=== PATIENT | male | born 2000 | race Caucasian/White ===

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

== ENCOUNTER 2018-07-01 19:13 | Emergency (ER) | payer OTHER ==
[2018-07-01 19:49] VITALS: BP 129/94
--- NOTE | 2018-07-01 20:14 | ED ---
Head Injury - HPI Summary HPI Summary: 7 months ago patient had a head injury , since that time has had persistent headaches, without nausea. yesterday he fell again and hit the back of his head. - History Of Current Complaint Chief Complaint: UCHeadache Stated Complaint: HEAD PAIN Time Seen by Provider: 07/01/18 19:53 Hx Obtained From: Patient Mechanism Of Injury: Blunt Trauma, Direct Blow Onset of Pain: Post Accident Severity Currently: Mild Pain Intensity: 6 Location of Head Injury: Temporal Character: Dull, Aching Aggravating Factor(s): Movement Alleviating Factor(s): Rest - Risk Factors SDH Risk Factor: Male, Recent Trauma - Allergies/Home Medications Allergies/Adverse Reactions: Allergies Allergy/AdvReac Type Severity Reaction Status Date / Time peanut Allergy Unknown Verified 07/01/18 19:50 Reaction Details soy Allergy Unknown Verified 07/01/18 19:50 Reaction Details Home Medications: Home Medications NK [No Home Medications Reported] 07/01/18 [History Confirmed 07/01/18] PMH/Surg Hx/FS Hx/Imm Hx Previously Healthy: Yes Endocrine/Hematology History: Denies: Hx Anticoagulant Therapy Respiratory History: Denies: Hx Asthma Infectious Disease History: No Infectious Disease History: Denies: Traveled Outside the [place] in Last 30 Days - Family History Known Family History: Negative: Seizure Disorder - Social History Alcohol Use: Rare Substance Use Type: Reports: Marijuana Substance Use Comment - Amount & Last Used: occasional Smoking Status (MU): Never Smoked Tobacco Review of Systems Constitutional: Negative Eyes: Negative ENT: Negative Cardiovascular: Negative Respiratory: Negative Gastrointestinal: Negative Genitourinary: Negative Musculoskeletal: Negative Skin: Negative Neurological: Negative All Other Systems Reviewed And Are Negative: Yes Physical Exam Triage Information Reviewed: Yes Vital Signs On Initial Exam: Initial Vitals Temp Pulse Resp BP Pulse Ox 36.8 C 74 16 129/94 100 07/01/18 19:43 07/01/18 19:43 07/01/18 19:43 07/01/18 19:43 07/01/18 19:43 Vital Signs Reviewed: Yes Appearance: Positive: Well-Appearing, No Pain Distress Skin: Positive: Warm, Dry Head/Face: Positive: Normal Head/Face Inspection Eyes: Positive: Normal, EOMI, DAVID ENT: Positive: Normal ENT inspection Neck: Positive: Supple Respiratory/Lung Sounds: Positive: Clear to Auscultation Cardiovascular: Positive: Normal Neurological: Positive: Normal, Sensory/Motor Intact, Alert, Oriented to Person Place, Time, CN Intact II-III, Reflexes Intact, Normal Gait Diagnostics - Vital Signs Vital Signs Temp Pulse Resp BP Pulse Ox 07/01/18 19:43 36.8 C 74 16 129/94 100 - Laboratory Lab Statement: Any lab studies that have been ordered have been reviewed, and results considered in the medical decision making process. Head Injury Course/Dx - Diagnoses Provider Diagnoses: Headache, post-traumatic Discharge - Sign-Out/Discharge Documenting (check all that apply): Patient Departure All imaging exams completed and their final reports reviewed: Yes - Discharge Plan Condition: Good Disposition: HOME Patient Education Materials: Chronic Post Traumatic Headache (ED) Referrals: No Primary Care Phys,[facility] [Primary Care Provider] - - Billing Disposition and Condition Condition: GOOD Disposition: Home
--- NOTE | 2018-07-01 20:38 | RAD ---
EXAM: CT Head Without Intravenous Contrast EXAM DATE/TIME: 07/01/2018 8:24 PM CLINICAL HISTORY: 17 years old, male; Pain; Additional info: Head injury 7 months ago, diagnosed with concussion, chronic headaches since, head injury last night w/o loc. Some disorientation and photosensitivity TECHNIQUE: Axial computed tomography images of the head/brain without intravenous contrast. All CT scans at this facility use at least one of these dose optimization techniques: automated exposure control; mA and/or kV adjustment per patient size (includes targeted exams where dose is matched to clinical indication); or iterative reconstruction. COMPARISON: No relevant prior studies available. FINDINGS: Brain: No acute ischemic changes, extra axial fluid collections, intraparenchymal hemorrhage, or midline shift. Ventricles: Normal. No ventriculomegaly. Bones/joints: Normal. No acute fracture. Sinuses: Normal as visualized. No acute sinusitis. Mastoid air cells: Normal as visualized. No mastoid effusion. Soft tissues: Normal. IMPRESSION: No traumatic intracranial abnormalities. To contact [facility] with a general question: [facility] - [phone] For direct physician to physician contact: Physician Hotline - [phone] [facility] (ad Facility ID #[id number])
== END 2018-07-01 20:41 | disposition home or self-care (01) ==
LOC: UCEAST 19:13
DX: S09.90XA Unspecified injury of head, initial encounter (principal); R51 Headache; W19.XXXA Unspecified fall, initial encounter; Y92.9 Unspecified place or not applicable
CPT/HCPCS: 70450; 99211; G0463

== ENCOUNTER 2019-11-15 20:43 | Inpatient (IN) | payer OTHER ==
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
[2019-11-15 22:14] LABS: Urine Benzodiazepine Screen None Detected (None Detect); Urine Opiates Screen None Detected (None Detect)
[2019-11-16] MEDS ORDERED: diPHENhydraMINE PO* 25 MG ONE (02:23)
[2019-11-16] MEDS ORDERED: Acetaminophen TAB* 325 MG PO PRN (02:46)
[2019-11-16] MEDS ORDERED: diphenhydrAMINE PO* 25 MG Q6H PRN AGITATION or INSOMNIA PO (02:46)
[2019-11-16] MEDS ORDERED: Al Hydrox/Mg Hydrox/Simet LIQ* 30 ML UDC PO PRN (02:46)
[2019-11-16] MEDS: Vitamin THERAPEUTIC TAB PO SCH (09:40)
[2019-11-16] MEDS ORDERED: Albuterol HFA INHALER* 8 gm MDI INH PRN (14:00)
[2019-11-16] MEDS: Pantoprazole TAB * 40 MG TAB PO SCH (15:44)
--- NOTE | 2019-11-16 16:04 | HP ---
HISTORY AND PHYSICAL: DATE OF ADMISSION: 11/16/19 SUPERVISING PSYCHIATRIST: Dr. Vikash Calloway.* (DICTATED BY JAMA NARANJO NP) JUSTIFICATION FOR ADMISSION: The patient presented to the emergency department with complaints of depression, anxiety, and thoughts of suiciding via hanging. The patient merits hospitalization for immediate safety and stabilization. CHIEF COMPLAINT: "I'm depressed at school." HISTORY OF PRESENT ILLNESS: César is a 19-year-old white male, domiciled, student at [employer], who presents to the emergency department under 9.45 due to making threats of suicide with a plan to hang himself this weekend. According to information obtained in the emergency room, his classmate reported that he has been stalking her and the behaviors are increasing. He made suicidal statements to her last evening after talking about ways in which he has made her uncomfortable. The patient reported a previous suicide attempt via hanging to her. During the evaluation process, he admitted to stating that he was going to hang himself and having suicidal thoughts earlier in the day. While being admitted to the [facility], the patient's father was present as he had driven here from their hometown of [place], [place]. He and the patient immediately submitted a written request for a court hearing and did not agree with the patient being admitted. Today, I spoke with the patient's father, Leif Cardenas, prior to meeting with César. Leif reported that he felt that the admission was an overreaction. He goes into detail describing the relationship that César has had with above classmate for the past year or so. He states that they dated briefly, then broke up in August 2018 just prior to finals. The patient felt ostracized by peers in the context of the relationship/friendship with Tonia. He took a medical leave at the end of spring 2018 for depression and a left knee injury. He returned to [employer] in 2019. Leif describes the relationship with Tonia to be manipulative and toxic. He states that she has been dating a student recruiter and described the inappropriate relationship to César. César then made fake social media accounts apparently under the guys to help Tonia and identify more information about the inappropriateness of the relationship. Leif states that he is considering helping César take a leave of absence. He advocates for his discharge as soon as possible to come back home and continue therapy with a private therapist he has been seeing for the past 7 years. The patient's father appreciative of information in regards to admission and discharge processes and reported desire to continue being a part of treatment planning. Upon approach, César is working on a puzzle in the milieu. He is pleasant, cooperative, and easy to establish rapport with. He states that he often goes into a meditative state after having anxiety attacks and that this happened yesterday last evening. This helped him go to sleep. He reports he has been regretful in regards to behaviors in the context of relationship with Tonia. He states he has been realizing slowly that they are toxic for each other. He identifies that she is the direct cause of anxiety for him. He reports that he made these fake Facebook and delicious accounts and then it became more intense than he intended it to be. He reports that he had thoughts of suicide yesterday. I asked about a previous suicide attempt and he denies. He states that he may have told someone about that, but that it was just a story. He denies stalking behaviors. He denies that he has changed classes to be more closely to her. He denies any thoughts of violence towards her or himself. He reports "I'm a pacifist." He states that he has worked very hard with a therapist for the past 7 years to assist with coping with periods of anxiety. He also has a history of attention deficit disorder and has learned many skills to help himself refocus. For example, he states that he lightly taps his face or his legs, but that these are not self-harm. He denies OCD rituals. He describes techniques that assist him in forgetfulness related to attention deficit. He denies eating disorder behaviors. He has historically been underweight and is sometimes conscious about that, but not at this time. He denies periods of tiffani. He likes to talk about philosophy and traveling around the world and reports that he is learning to not engage in avoidance behaviors, to be more mindful in the moment and to let distressing things go more quickly. He often speaks of his travel to [place] and a recent trip to [place] that were both eye- opening to him in regards to wanderlust. He denies depressed mood. He endorses periods of anxiety. He denies thoughts of suicide at this time. He denies auditory or visual hallucinations. As stated above, he denies periods of tiffani or hypomania. PAST PSYCHIATRIC HISTORY: The patient has seen a private therapist named Crystal in [facility] for the past 7 years. He has not been trialed on any psychiatric medications. TRAUMA/ABUSE HISTORY: The patient denies. SUBSTANCE USE HISTORY: The patient reports drinking alcohol socially 1 to 2 drinks at a time. He reports intoxication x1 when considering pledging for a fraternity. He reports marijuana use at age 16 for about a year. He reports the last year has probably been once every 2 months. Cigarettes only while he was in [place]. Psychedelic truffles in [place] and last July microdosing with psychedelic mushrooms. 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 CURRENT MEDICATIONS: None. He reports taking magnesium and vitamin D supplements. FAMILY PSYCHIATRIC HISTORY: Father with anxiety and ADD. Paternal cousin with depression. Paternal grandmother with depression and alcoholism. Paternal uncle with drug addiction. SOCIAL HISTORY: The patient is the youngest of 2 sons by parents who when the patient was approximately 14 years old. He reports he had big thoughts of suicide during the dissolution of his parents' marriage. His older brother is 23 and graduated from college with philosophy and neuropsychology. The patient identifies as agnostic and likes to read about Roman [employer]. He is a student at [employer]. He reports liking travel, music, and playing guitar. REVIEW OF SYSTEMS: Constitutional: Negative. No fever, chills, or fatigue. ENT: Negative. Cardiovascular: Negative. Denies chest pain or palpitations. Respiratory: Negative. Denies shortness of breath or cough. Genitourinary: Negative. Musculoskeletal: Negative. Neurological: Negative. Gastrointestinal: The patient endorses acid reflux. PHYSICAL EXAMINATION GENERAL: The patient is well appearing and well nourished. VITAL SIGNS: 5 feet 11 inches, weight 155 pounds. T 97.3, P 90, RR 16, O2 sat 100%, BP 145/99. HEENT: Head and face: Normal head and face inspection. Eyes: Positive EOMI. PERRLA. Conjunctivae clear. NECK: Supple. Full ROM. Trachea midline. RESPIRATORY: Lung sounds clear to auscultation, breath sounds present. CARDIOVASCULAR: Heart RRR. Pulses are symmetrical in both upper and lower extremities. MUSCULOSKELETAL: Normal strength. ROM intact. NEUROLOGICAL: Normal sensory and motor intact. Alert and oriented x3, with normal gait. Cerebellar function intact. SKIN: Warm and dry. Color reflects adequate perfusion. Small tattoo noted on the left forearm. LABORATORY DATA: Urine drug screen negative. Alcohol negative. We will obtain fasting hemoglobin A1c, lipid panel, and baseline labs that were not obtained in the ED tomorrow morning. MENTAL STATUS EXAM: César is a 19-year-old white male, who appears stated age. He is wearing hospital scrubs. He sits with erect posture. He is wearing dark rimmed glasses and has short brown hair that is disheveled. He is cooperative, pleasant, and answers questions fully. He is alert and oriented x3. Eye contact is good. Speech is rapid, articulate, and spontaneous. Concentration fair. Memory 3/3. Mood is anxious with bright affect. No abnormal psychomotor activity noted. Thought process is circumstantial, overinclusive. Thought content is negative for suicidal ideation or passive wish. He endorsed having thoughts of suicide yesterday. He denies auditory or visual hallucinations. There are no perceptual disturbances noted. He denies HI or . Insight and judgment are poor. He appears to have at least an average intellect by virtue of vocabulary and educational attainment. Fund of knowledge is adequate. DIAGNOSES: 1. Unspecified anxiety disorder. 2. Unspecified depressive disorder. 3. Attention deficit hyperactivity disorder, inattentive type. ASSESSMENT: César is a 19-year-old white male with no previous psychiatric hospitalizations, who presented to the emergency department via campus police due to making suicidal statements to a peer. While in the ED, the patient endorsed suicidal ideation and a plan to hang himself this weekend. He reports a history of anxiety and attention deficit disorder and has been working with a private therapist near his home for the past 7 years. He reports that he does not believe in medications and is not willing to consider these at this time. PLAN: The patient is admitted to adult behavioral services unit on involuntary status. Code status is full. He is placed on safety checks every 15 minutes. He is already participating in supportive milieu, individual sessions with staff and psychoeducational groups. We will obtain an MMPI for diagnostic clarification. The patient requested that he have an albuterol inhaler available due to recent travel to [place]. He also requested a PPI, so we will start pantoprazole. Estimated length of stay is 2 to 3 days. His father is already involved in discharge planning. We will also include [facility]. JAMA NARANJO NP [id number]/CPS #: [id number] PINEDA
[2019-11-17 09:43] VITALS: BP 130/85
[2019-11-17] MEDS: Pantoprazole TAB * 40 MG TAB PO SCH (10:28)
[2019-11-17] MEDS: Vitamin THERAPEUTIC TAB PO SCH (10:28)
--- NOTE | 2019-11-19 12:57 | DS ---
CC: [facility] DISCHARGE SUMMARY: DATE OF ADMISSION: 11/16/19 DATE OF DISCHARGE: 11/17/19 SUPERVISING PSYCHIATRIST: Dr. Vikash Calloway. CONDITION AT THE TIME OF DISCHARGE: Improved. The patient has been euthymic with bright affect. He participated fully in unit programming. He denies suicidal ideation and has since arriving to the [facility]. He has been safe on all checks. He was decreased to 30-minute observation. The patient's [facility] er was present for a family meeting and his mother was on speakerphone. We discussed César's present ation and stressors leading to admission. The patient's father and parents are supportive of the pat ient's consideration to take a leave of absence or to continue at [facility] this semester. The patient and his father advocated for his discharge especially due to the fact that his father is in t own and assisting with transition out of the hospital. We discussed the results of his MMPI that den oted he minimizes events leading to admission. The patient is known to be somewhat emotionally immat ure and is actively working on improving social relations. The patient is generally pleasant to be a round. As stated above, he and his parents are advocating for discharge from the hospital. The ryan ent is discharged to home. MENTAL STATUS EXAM: César is a 19-year-old white male who appears stated age. He is well groomed, c asually dressed in his own clothing. He sits with a good posture, is cooperative and participates fu lly in conversation. He moves position often mostly related to frustration during conversation with his mother. He is alert and oriented x3. Eye contact is good. Speech is normal rate, rhythm, and v olume. Concentration good. Memory 3/3. Mood is euthymic with bright affect. Thought process is log ical, goal directed, and coherent. Thought content is negative for suicidal ideation or passive deat h wish. He denies HI or . He denies auditory or visual hallucinations. There are no perceptual d isturbances noted. He appears to have at least an average intellect by virtue of vocabulary and educ ational attainment. Fund of knowledge is excellent. INSTRUCTIONS GIVEN TO THE PATIENT: A. Medicatio ns: The patient declined offer of psychiatric medications. He will continue on: 1. Albuterol inhaler 2 puffs inhaled q.6 hours p.r.n. SOB. 2. Pantoprazole 40 mg p.o. daily. B. Diet: Regular. C. Activity: Ambulation as tolerated. Tobacco cessation is not applicable. There are no pending la bs or diagnostic studies. D. Followup care: The patient is referred to return to [facility] for counseling and academic a dvising. E. Substance use followup is not applicable. HOSPITAL COURSE: Part A: Reason for admission: The patient presented to the emergency department wi th complaints of depression, anxiety, and thoughts of suicide via hanging. Chief complaint: "I'm depressed at school." HPI: César is a 19-year-old white male, domiciled, student at [facility], who presents to the em ergency department under 9.45 due to making threats of suicide with a plan to hang himself this weeke . According to information obtained in the emergency room, his classmate reported that he had been stalking her and that the behaviors are increasing. He made suicidal statements to her last evening after talking about ways in which he has made her uncomfortable. The patient reported a previous francois icide attempt via hanging to her. During the evaluation process, he admitted to stating that he was going to hang himself and having suicidal thoughts earlier in the day. While being admitted to the [facility], the patient's father was present as he had driven here from their hometown of [place], [place]. He and the patient immediately submitted a written request for a court hearing and did not agree wi th the patient being admitted. I spoke with the patient's father Leif Hirschthal prior to meeting with César. Leif reported that he felt that the admission was an overreaction. He goes into detail describing the relationship that César has had with above classmate for the past year or so. He states they dated briefly, then brok e up in August 2018 just prior to finals. The patient felt ostracized by peers in the context of t he relationship ending. He took a medical leave at the end of spring 2018 for depression and left kn ee injury. He returned to [facility] in 2018. Leif describes the relationship with Tonia to be manipulative and toxic. He states that she has been dating a sql data analyst and described the i nappropriate relationship to César. César then made fake social media accounts apparently under the guise to help Tonia identify more information about the inappropriateness of the relationship. Davon beltran states he is considering helping César take a leave of absence. He advocates for his discharge as soon as possible to come back home and continue therapy with a private therapist that he has been se morgan for the past 7 years. The patient's father was appreciative of information in regards to admiss ion and discharge processes and reported desire to continue being part of treatment planning. Upon approach, César was working on a puzzle in the milieu. He is pleasant, cooperative, and easy to establish rapport with. He states that he often goes into a meditative state after having anxiety a ttacks and that this happened last evening. This helped him go to sleep. He reports he has been reg retful in regards to behaviors in the context of the relationship with Tonia. He states he has been realizing slowly that they are toxic for each other. He identifies that she is the direct cause of anxiety for him. He reports that he made these Facebook and [employer] accounts and then it became mo re intense than he intended it to be. He initially wanted it to just be a joke. He reports that he had thoughts of suicide yesterday. I asked about a previous suicide attempt and he denies. He state s that he may have told someone about that, but it was just a story. He denies stalking behaviors. He denies he has changed classes to be more closely to her. He denies any thoughts of violence towar ds her, himself, or anyone else. He reports "I'm a pacifist." He states that he has worked very charley d with a therapist for the past 7 years to assist with coping with periods of anxiety. He also has a history of attention deficit disorder and has learned many skills to help himself refocus. For sidney cao, he states that he lightly taps his face or his legs but these are not self-harm. He denies OCD r ituals. He describes techniques that assist him in forgetfulness related to attention deficit. He d enies eating disorder behaviors. He has historically been underweight and is sometimes self-conscious about that, but not at this time. He denies periods of tiffani. He likes to talk about philosophy an d traveling around the world and reports that he is learning to not engage in avoidance behaviors, to be more mindful in the moment and to let stressing things go more quickly. He often speaks of his t ravel to [place] and a recent trip to [place]. They were both eye-opening to him in regards to "wan derlust." He denies depressed mood. He endorses periods of anxiety. He denies thoughts of suicide at this time. He denies auditory or visual hallucinations. He denies periods of tiffani or hypomania as stated above. Part B: Psychiatric treatment rendered: The patient was admitted to adult behavioral services unit on an involuntary status. He was placed on 15-minute checks for safety. He was full code. He parti cipated in unit programming, psychoeducational groups and individual sessions with staff. He was soc ial with peers and staff. He was generally pleasant to be around. As stated above, he denied offer of medications for anxiety or depression. He reported willingness to continue with therapy at [facility] if he stays this semester. If he does take a medical leave, he will return to therapy with his previous therapist in [facility]. The patient reported desire to abstain from social media es pecially in ways in which he was engaging. He reports that he is "done" with the relationship with Penelope washingtonisaiah and does not even want to interact as friends. His parents are very supportive and involved. He and his father clearly have a close relationship. The patient's father reports desire for him to be discharged and will remain with him while transitioning from the hospital. JAMA NARANJO NP [id number]/CPS #: [id number]
== END 2019-11-17 12:40 | disposition home or self-care (01) | DRG 756 ==
LOC: ED 20:43 → BSU 11-16 00:43
PROVIDERS: ADMIT Psychiatry & Neurology Psychiatry; ATTEND Psychiatry & Neurology Psychiatry
DX: F41.9 Anxiety disorder, unspecified (principal); R45.851 Suicidal ideations; F32.9 Major depressive disorder, single episode, unspecified; F90.0 Attention-deficit hyperactivity disorder, predominantly inattentive type; Z81.8 Family history of other mental and behavioral disorders; Z81.1 Family history of alcohol abuse and dependence; Z81.3 Family history of other psychoactive substance abuse and dependence; Z91.010 Allergy to peanuts; Z91.018 Allergy to other foods
CPT/HCPCS: 36415; 80307; 80320; 99222; 99238; 99284; A9270-GY; G0480